=== PATIENT | female | born 1980 | race African-American/Black ===

== ENCOUNTER 2017-10-13 06:56 | Emergency (ER) | payer OTHER ==
[~2017-10-13] VITALS: Ht 165.1 cm; Wt 78.9 kg
[2017-10-13 07:50] VITALS: BP 132/86
[2017-10-13] MEDS ORDERED: IBUPROFEN 600600 M1 PO (08:33)
[2017-10-13] MEDS ORDERED: NORCO 5-325 TA1 EACH PO (08:33)
== END 2017-10-13 09:10 | disposition home or self-care (01) ==
LOC: ER 06:56
DX: S22.32XA Fracture of one rib, left side, initial encounter for closed fracture (principal); M54.2 Cervicalgia; V89.2XXA Person injured in unspecified motor-vehicle accident, traffic, initial encounter; Y93.89 Activity, other specified; Y92.89 Other specified places as the place of occurrence of the external cause; Y99.8 Other external cause status